=== PATIENT | male | born 1970 | race Caucasian/White ===

== ENCOUNTER 2021-02-21 10:33 | Emergency (ER) | payer SELFPAY ==
[~2021-02-21] VITALS: Ht 185.4 cm; Wt 86.2 kg
[2021-02-21 10:37] VITALS: BP_SYST 157
[2021-02-21 11:21] VITALS: BP_SYST 157
== END 2021-02-21 11:20 | disposition home or self-care (01) ==
LOC: SED 10:33
DX: S09.90XA Unspecified injury of head, initial encounter (principal); W22.8XXA Striking against or struck by other objects, initial encounter; Y93.89 Activity, other specified; Y92.89 Other specified places as the place of occurrence of the external cause; Y99.8 Other external cause status
CPT/HCPCS: 99283